=== PATIENT | male | born 2000 | race Caucasian/White ===

== ENCOUNTER 2018-12-04 01:24 | Emergency (ER) | payer OTHER, BC ==
[~2018-12-04] VITALS: Ht 170.2 cm; Wt 63.5 kg
--- NOTE | 2018-12-04 01:49 | NUR ---
PT REFUSED ALL TREATMENT
== END 2018-12-04 01:50 ==
LOC: ER 01:29 → EDBD 01:29 → ER 01:50
DX: S60.221A Contusion of right hand, initial encounter (principal); X58.XXXA Exposure to other specified factors, initial encounter; Y93.89 Activity, other specified; Y92.89 Other specified places as the place of occurrence of the external cause; Y99.8 Other external cause status